=== PATIENT | female | born 1970 | race Hispanic/Latino ===

== ENCOUNTER 2020-02-27 20:12 | Emergency (ER) | payer SELFPAY ==
[2020-02-27 22:42] LABS: Absolute Lymphocytes (CBC) 0.9 K/uL (0.7-4.9); Basophils % 0.1 % (0-1.3); Hematocrit 39.3 % (36.0-45.0); Lymphocytes % 8.8 % (15.3-44.8); MPV 8.6 fL (7.6-11.3); RBC Red Blood Cell Count 4.26 M/uL (3.86-4.86)
[2020-02-27 23:04] LABS: Albumin 3.9 g/dL (3.4-5.0); Bilirubin Direct 0.3 mg/dL (0-0.2); Bilirubin Total 0.7 mg/dL (0.2-1.0); Protein, Total 7.5 g/dL (6.4-8.2)
[2020-02-27 23:52] LABS: Blood Morphology Comment NOT SEEN (NOT SEEN); Platelet Estimate ADEQ
[2020-02-28] MEDS ORDERED: MAGNE/ALUM HYDROXD 30 ML UCUP ONE (00:04)
[2020-02-28] MEDS ORDERED: LIDOCAINE VISCOUS 2% SOLN 15 ML UDC ONE (00:04)
--- NOTE | 2020-02-28 00:11 | EDPHYS ---
Physician Documentation [facility] Name: Mariela Prado Age: 49 yrs Sex: Female : 1970 Arrival Date: 02/27/2020 Time: 20:14 Bed 8 Private MD: ED Physician Albert Estevez HPI: 02/27 00:17 This 49 yrs old Female presents to ER via Ambulatory with complaints of tw4 Abdominal Pain. 00:17 The patient presents with abdominal pain in the epigastric area. Onset: The tw4 symptoms/episode began/occurred today. The symptoms do not radiate. Associated signs and symptoms: none. The symptoms are described as sharp. Modifying factors: The symptoms are alleviated by nothing, the symptoms are aggravated by nothing. Severity of pain: At its worst the pain was mild in the emergency department the pain is unchanged. The patient has not experienced similar symptoms in the past. 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 - Social history:: Smoking status: Patient denies any tobacco usage or history of. Patient/guardian denies using alcohol, street drugs, tobacco products. ROS: 02/27 00:17 Constitutional: Negative for fever, chills, and weight loss, Eyes: Negative for injury, tw4 pain, redness, and discharge, Cardiovascular: Negative for chest pain, palpitations, and edema, Respiratory: Negative for shortness of breath, cough, wheezing, and pleuritic chest pain, Back: Negative for injury and pain, MS/Extremity: Negative for injury and deformity, Skin: Negative for injury, rash, and discoloration, Neuro: Negative for headache, weakness, numbness, tingling, and seizure. Abdomen/GI: Positive for abdominal pain, Negative for nausea and vomiting, nausea, vomiting, and diarrhea, nausea, diarrhea, constipation, abdominal cramps, abdominal distension, anorexia. Exam: 00:17 Constitutional: This is a well developed, well nourished patient who is awake, alert, tw4 and in no acute distress. Head/Face: Normocephalic, atraumatic. Chest/axilla: Normal chest wall appearance and motion. Nontender with no deformity. No lesions are appreciated. Cardiovascular: Regular rate and rhythm with a normal S1 and S2. No gallops, murmurs, or rubs. Normal PMI, no JVD. No pulse deficits. Respiratory: Lungs have equal breath sounds bilaterally, clear to auscultation and percussion. No rales, rhonchi or wheezes noted. No increased work of breathing, no retractions or nasal flaring. Skin: Warm, dry with normal turgor. Normal color with no rashes, no lesions, and no evidence of cellulitis. MS/ Extremity: Pulses equal, no cyanosis. Neurovascular intact. Full, normal range of motion. Neuro: Awake and alert, GCS 15, oriented to person, place, time, and situation. Cranial nerves II-XII grossly intact. Motor strength 5/5 in all extremities. Sensory grossly intact. Cerebellar exam normal. Normal gait. 00:17 Back: No spinal tenderness. No costovertebral tenderness. Full range of motion. 00:17 Abdomen/GI: Inspection: abdomen appears normal, Bowel sounds: diminished, Palpation: mild abdominal tenderness, in the epigastric area. Vital Signs: 02/26 20:20 BP 132 / 74; Pulse 67; Resp 17; Temp 97.9; Pulse Ox 98% ; Weight 81.65 kg; Pain 10/10; ll1 22:00 BP 114 / 65; Pulse 92; Resp 17; Pulse Ox 98% on R/A; rv 23:00 BP 112 / 51; Pulse 81; Resp 16; Pulse Ox 96% on R/A; rv 02/27 00:00 BP 116 / 74; Pulse 84; Resp 18; Temp 98; Pulse Ox 99% on R/A; rv MDM: 02/26 22:14 Patient medically screened. tw4 02/27 00:17 Data reviewed: vital signs, nurses notes. Data interpreted: Pulse oximetry: tw4 Interpretation: normal. Counseling: I had a detailed discussion with the patient and/or guardian regarding: the historical points, exam findings, and any diagnostic results supporting the discharge/admit diagnosis. Special discussion: I discussed with the patient/guardian in detail that at this point there is no indication for admission to the hospital. It is understood, however, that if the symptoms persist or worsen the patient needs to return immediately for re-evaluation. 02/26 22:16 Order name: Basic Metabolic Panel; Complete Time: 23:31 tw4 02/26 23:31 Interpretation: Normal except: GLUC 129; GFR 60. tw4 02/26 22:16 Order name: CBC with Diff tw4 02/26 23:31 Interpretation: Normal except: LISA% 86.6; LYM% 8.8; NEUT A 8.9. tw4 02/26 22:16 Order name: Hepatic Function; Complete Time: 23:31 tw4 02/26 23:31 Interpretation: Normal except: AST 220; ALT 123; BILID 0.3; GLOB 3.6. tw4 02/26 22:16 Order name: Lipase; Complete Time: 23:31 tw4 02/26 22:47 Order name: Manual Differential EDMS 02/26 23:17 Order name: Urine Dipstick--Ancillary (enter results) tt3 02/26 22:16 Order name: IV Saline Lock; Complete Time: 22:27 tw4 02/26 22:16 Order name: Labs collected and sent; Complete Time: 22:27 tw4 02/26 23:30 Order name: Urine Dipstick-Ancillary (obtain specimen); Complete Time: 23:32 tw4 Administered Medications: 02/26 23:59 Drug: GI Cocktail without - (Maalox Suspension 30 ml, Lidocaine Liquid 2 % 15 wh ml) Route: PO; 02/27 00:33 Follow up: Response: No adverse reaction; Pain is decreased wh Disposition: 02/28/20 00:10 Discharged to Home. Impression: Gastritis, unspecified, Gastritis, unspecified, without bleeding. - Condition is Stable. - Discharge Instructions: Gastritis, Adult. - Prescriptions for Carafate 1 gram Oral Tablet - take 1 tablet by ORAL route 4 times per day take on an empty stomach, beginning on waking and last dose at bedtime; 100 tablet. Pepcid 20 mg Oral Tablet - take 1 tablet by ORAL route every 12 hours for 10 days; 20 tablet. - Medication Reconciliation Form, Thank You Letter, Antibiotic Education, Prescription Opioid Use form. - Follow up: Private Physician; When: Upon discharge from the Emergency Department; Reason: Recheck today's complaints, Continuance of care, Re-evaluation by your physician. - Problem is new. - Symptoms have improved. Signatures: Dispatcher [employer] EDRaulito Fletcher Albert Estevez MD MD tw4 David Gutierrez RN RN ll1 Corrections: (The following items were deleted from the chart) 00:33 00:10 02/28/2020 00:10 Discharged to Home. Impression: Gastritis, unspecified; wh Gastritis, unspecified, without bleeding. Condition is Stable. Forms are Medication Reconciliation Form, Thank You Letter, Antibiotic Education, Prescription Opioid Use. Follow up: Private Physician; When: Upon discharge from the Emergency Department; Reason: Recheck today's complaints, Continuance of care, Re-evaluation by your physician. Problem is new. Symptoms have improved. tw4
--- NOTE | 2020-02-28 00:11 | ER ---
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 No N/V/D. No ll1 fever. States he had slight pain four days ago, that resolved the same day. Coronavirus screen: Client denies travel out of the [place] in the last 14 days. At this time, the client does not indicate any symptoms associated with coronavirus-19. Ebola Screen: Patient denies travel to an Ebola-affected area in the 21 days before illness onset. Initial Sepsis Screen: Does the patient meet any 2 criteria? No. Patient's initial sepsis screen is negative. Risk Assessment: Do you want to hurt yourself or someone else? Patient reports no desire to harm self or others. Onset of symptoms was February 27, 2020. 20:20 Method Of Arrival: Ambulatory ll1 20:20 Acuity: ROMEL 3 ll1 22:30 Initial Sepsis Screen: Does the patient have a suspected source of infection? No. wh Patient's initial sepsis screen is negative. 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 - Social history:: Smoking status: Patient denies any tobacco usage or history of. Patient/guardian denies using alcohol, street drugs, tobacco products. Screenin:30 Abuse screen: Denies threats or abuse. Denies injuries from another. Nutritional screening: No deficits noted. Tuberculosis screening: No symptoms or risk factors identified. Fall Risk None identified. Assessment: 22:30 General: Appears in no apparent distress. uncomfortable, Behavior is calm, cooperative, wh appropriate for age. Pain: Complains of pain in epigastric area Pain does not radiate. Pain currently is 8 out of 10 on a pain scale. Quality of pain is described as burning. Neuro: Level of Consciousness is awake, alert, obeys commands, Oriented to person, place, time, situation, Appropriate for age. Cardiovascular: Heart tones S1 S2. Respiratory: Airway is patent Respiratory effort is even, unlabored, Respiratory pattern is regular, symmetrical, Breath sounds are clear bilaterally. GI: Abdomen is flat, non-distended, Bowel sounds present X 4 quads. Abd is soft and non tender Reports upper abdominal pain. : No signs and/or symptoms were reported regarding the genitourinary system. EENT: No signs and/or symptoms were reported regarding the EENT system. Derm: Skin is intact, is healthy with good turgor, Skin is pink, warm \T\ dry. normal. Musculoskeletal: Circulation, motion, and sensation intact. 23:30 Reassessment: Patient appears in no apparent distress at this time. No changes from previously documented assessment. Patient and/or family updated on plan of care and expected duration. Pain level reassessed. Patient is alert, oriented x 3, equal unlabored respirations, skin warm/dry/pink. 02/27 00:15 Reassessment: Patient appears in no apparent distress at this time. No changes from previously documented assessment. Patient and/or family updated on plan of care and expected duration. Pain level reassessed. Patient is alert, oriented x 3, equal unlabored respirations, skin warm/dry/pink. Patient states feeling better. Patient states symptoms have improved. Vital Signs: 02/26 20:20 BP 132 / 74; Pulse 67; Resp 17; Temp 97.9; Pulse Ox 98% ; Weight 81.65 kg; Pain 10/10; ll1 22:00 BP 114 / 65; Pulse 92; Resp 17; Pulse Ox 98% on R/A; rv 23:00 BP 112 / 51; Pulse 81; Resp 16; Pulse Ox 96% on R/A; rv 02/27 00:00 BP 116 / 74; Pulse 84; Resp 18; Temp 98; Pulse Ox 99% on R/A; rv ED Course: 02/26 20:14 Patient arrived in ED. cl3 20:21 Triage completed. ll1 20:22 Arm band placed on Patient notified of wait time. ll1 22:01 Raulito Ragsdale is Primary Nurse. wh 22:14 Albert Estevez MD is Attending Physician. tw4 22:28 Inserted saline lock: 20 gauge in right antecubital area, using aseptic technique. rr5 Blood collected. 22:30 Patient has correct armband on for positive identification. Bed in low position. Call light in reach. Side rails up X 1. Pulse ox on. NIBP on. 02/27 00:32 No provider procedures requiring assistance completed. IV discontinued, intact, bleeding controlled, No redness/swelling at site. Administered Medications: 02/26 23:59 Drug: GI Cocktail without - (Maalox Suspension 30 ml, Lidocaine Liquid 2 % 15 wh ml) Route: PO; 02/27 00:33 Follow up: Response: No adverse reaction; Pain is decreased Outcome: 00:10 Discharge ordered by . tw4 00:33 Discharged to home ambulatory. 00:33 Condition: stable 00:33 Discharge instructions given to patient, Instructed on discharge instructions, follow up and referral plans. medication usage, POC Demonstrated understanding of instructions, follow-up care, medications, POC Prescriptions given X 2. 00:33 Patient left the ED. Signatures: Raulito Ragsdale Albert Estevez MD MD tw4 Ramiro Laughlin, RN RN Catalino Mccullough RN RN rr5 Latha Gutierrez cl3 David Gutierrez RN RN ll1
[2020-02-28 00:28] LABS: Urine Blood 2+ (NEG); Urine Glucose NEGATIVE (NEG); Urine Specific Gravity 1.025 (1.005-1.030)
[2020-02-28 00:29] LABS: Urine Protein NEGATIVE (NEG)
[2020-02-28 00:57] VITALS: BP 116/74; TEMP 98; O2SAT 99
== END 2020-02-28 00:33 | disposition home or self-care (01) ==
LOC: ER 20:12
DX: K29.70 Gastritis, unspecified, without bleeding (principal)
CPT/HCPCS: 36415; 80048; 80076; 81003; 83690; 85025; 99284